=== PATIENT | female | born 1995 | race African-American/Black ===

== ENCOUNTER 2023-02-09 23:03 | Emergency (ER) | payer MEDICAID, OTHER ==
[~2023-02-09] VITALS: Ht 167.6 cm; Wt 109.1 kg
[2023-02-10 03:08] VITALS: BP 118/75; PULSE 76; RESP 20; TEMP 98.3; O2SAT 97
[2023-02-10] MEDS ORDERED: CYCL-614 PO (03:40)
[2023-02-10] MEDS ORDERED: IBUP-1456 PO (03:40)
[2023-02-10] MEDS ORDERED: IBUPROFEN 800 MG TAB PO ONE (04:00)
== END 2023-02-10 05:42 | disposition home or self-care (01) ==
LOC: ER 23:03
DX: S29.012A Strain of muscle and tendon of back wall of thorax, initial encounter (principal); S63.8X2A Sprain of other part of left wrist and hand, initial encounter; F15.90 Other stimulant use, unspecified, uncomplicated; Z87.891 Personal history of nicotine dependence; Z79.899 Other long term (current) drug therapy; V49.88XA Car occupant (driver) (passenger) injured in other specified transport accidents, initial encounter; Y93.I9 Activity, other involving external motion; Y92.89 Other specified places as the place of occurrence of the external cause; Y99.8 Other external cause status
CPT/HCPCS: 72070; 73110; 73130